=== PATIENT | male | born 1960 | race Caucasian/White ===

== ENCOUNTER 2022-11-26 05:01 | Emergency (ER) | payer OTHER, SELFPAY ==
[2022-11-26] VITALS (17 sets, daily range): BP systolic 153–189; BP diastolic 79–103; PULSE 70–106; RESP 15–24; TEMP 36.6; O2SAT 92–96; BMI 23.1
--- NOTE | 2022-11-26 05:10 | DI.RAD.S_ITS ---
PROCEDURE: XR CHEST 1V INDICATIONS: chest pain TECHNIQUE: One view of the chest was acquired. COMPARISON: None. FINDINGS: Surgical changes and devices: None. Lungs and pleura: Lungs are clear. No pleural effusions or pneumothorax. Mediastinum: Mediastinal contours appear normal. Heart size is normal. Bones and chest wall: No suspicious bony lesions. Overlying soft tissues appear unremarkable. IMPRESSION: No acute cardiopulmonary findings Approved by: Asad Pérez M.D. on 11/26/2022 at 7:09
--- NOTE | 2022-11-26 05:12 | ED_ITS ---
HPI - Chest Pain <Boris Allen - Last Filed: 11/26/22 17:55> General Chief Complaint: Chest Pain Stated Complaint: SOB- fever/chills. Time Seen by Provider: 11/26/22 05:09 History of Present Illness HPI narrative: 61M nonsmoker with history of asthma presents by EMS with his in the chief complaint of shortness of breath, wheezing, subjective fever and chills as well as anterior chest pain and generalized abdominal pain. He has been having increasing shortness of breath with exertion for what sounds like the past few weeks. Prior to today and yesterday he has not had chest pain nor other exertional symptoms such as lightheadedness, nausea, vomiting or unexplained diaphoresis. He had been having these symptoms and they were hesitant to fly he re from where they live in [place] but elected to nonetheless, he started feeling poorly midway on the flight and upon landing was taken to [facility] in [place] where he had what sounds like an extensive workup (records are being requested). He was discharged home with reassuring lab work, report of abnormal EKG with recommendation to get a stress test, as well as budesonide and prescription for doxycycline. He then drove to [facility] with his and over the course of the day continued to feel poorly using his inhaler every couple hours and finally this evening called EMS. He was feeling short of breath and though not hypoxemic EMS put him on 2 L by nasal cannula. Paco myers responded and gave him a DuoNeb and route. He complains of anterior chest pressure and squeezing without radiation and trouble breathing. He is clearly very uncomfortable and also complaining of some generalized abdominal pain. He denies obvious provocation, palliation or radiation was abdominal discomfort he is had no nausea or vomiting and denies any change in diet. He has been passing gas without difficulty and had a bowel movement earlier today. He denies urinary complaints such as dysuria, frequency or urgency. His last hospitalization for admission was well over 1 year ago We have contacted outside facility who will be sending records, but they do mention that he left AMA Related Data Previous Rx's Medication Instructions Recorded albuterol sulfate 90 mcg/actuation 2 puff inhalation Q6H PRN 11/26/22 aerosol inhaler shortness of breath or wheezing #8.5 grams budesonide-formoterol HFA 160 2 puff inhalation BID #10.2 grams 11/26/22 mcg-4.5 mcg/actuation aerosol inhaler (Symbicort) ipratropium 0.5 mg-albuterol 3 mg 3 ml inhalation Q4-6H PRN 11/26/22 (2.5 mg base)/3 mL nebulization shortness of breath or wheezing soln #90 mL oxycodone-acetaminophen 5 mg-325 1 tab PO Q6H PRN pain, cough #20 11/26/22 mg tablet tabs prednisone 20 mg tablet 40 mg PO DAILY #10 tabs 11/26/22 Allergies Allergy/AdvReac Type Severity Reaction Status Date / Time No Known Drug Allergies Allergy Verified 11/26/22 05:10 Review of Systems <Boris Allen DO - Last Filed: 11/26/22 17:55> Review of Systems Narrative: GENERAL: See HPI HEENT: Denies sinus pain, ear pain, sore throat, difficulty swallowing, dizziness. RESPIRATORY: See HPI CARDIOVASCULAR: See HPI GASTROINTESTINAL: See HPI : Denies dysuria, frequency, incontinence, hematuria, urinary retention. MUSCULOSKELETAL: denies weakness, joint pain, or bony pain SKIN: Denies rash, skin lesions, or other NEUROLOGIC: Denies weakness, headache, numbness, change in speech, confusion, seizures, incoordination. PSYCHIATRIC: No concerning psychosocial issues. 12 point review of systems is negative except for those stated above Exam <Boris Allen DO - Last Filed: 11/26/22 17:55> Narrative Exam Narrative: GENERAL: [61] year old patient appears stated age. Well-developed patient, in obvious distress, uncomfortable, scooting around on the car rubbing his chest and abdomen HEAD: Atraumatic. Normocephalic. EYES: Pupils equal round and reactive. Extraocular motions intact. No scleral icterus. No injection or drainage. ENT: Nose without bleeding, purulent drainage. Throat without erythema, tonsillar hypertrophy or exudate. Airway patent. NECK: Trachea midline. Non tender CARDIOVASCULAR: Regular rate and rhythm without murmurs, gallops, or rubs. RESPIRATORY: Diminished throughout with prolonged expiratory phase and end expiratory wheeze throughout, perhaps faint crackles in bilateral bases GASTROINTESTINAL: Abdomen soft, non-tender, nondistended. EXTREMITIES: No edema or joint tenderness. BACK: Nontender without deformity or crepitance. No flank tenderness. NEURO: AOx3. SKIN: No rash or erythema of visible areas Initial Vital Signs Initial Vital Signs: Vital Signs Pulse Rate 83 11/26/22 05:07 Pulse Oximetry 95 11/26/22 05:07 <Abi Khalil MD - Last Filed: 11/26/22 18:55> Initial Vital Signs Initial Vital Signs: Vital Signs Pulse Rate 83 11/26/22 05:07 Pulse Oximetry 95 11/26/22 05:07 Course <Boris Allen DO - Last Filed: 11/26/22 17:55> Orders Ordered: Discontinued Medications Albuterol/Ipratropium (Albuterol/Ipratropium 3 Ml Ampul) 3 ml INH NOW ONE Stop: 11/26/22 09:46 Last Admin: 11/26/22 09:54 Dose: 3 ml Documented By: ILYA Aspirin (Aspirin 81 Mg Chew Tab) 324 mg PO NOW ONE Stop: 11/26/22 05:10 Last Admin: 11/26/22 05:23 Dose: 324 mg Documented By: DAVID Sodium Chloride (Normal Saline 0.9%) 1,000 mls @ 1,000 mls/hr IV BOLUS ONE Stop: 11/26/22 06:08 Last Infusion: 11/26/22 06:41 Dose: 0 mls/hr Documented By: Admin: 11/26/22 05:23 Dose: 1,000 mls/hr Documented By: DAVID Ketorolac Tromethamine (Ketorolac 30 Mg/Ml Vial) 15 mg IV NOW ONE Stop: 11/26/22 09:46 Last Admin: 11/26/22 10:02 Dose: 15 mg Documented By: TAJ Methylprednisolone (Methylprednisolone 125 Mg/2 Ml Vial) 125 mg IV NOW ONE Stop: 11/26/22 06:47 Last Admin: 11/26/22 07:02 Dose: 125 mg Documented By: SHOLA Oxycodone/Acetaminophen (Oxycodone/Acetaminophen 5/325 Tablet) 1 tab PO NOW ONE Stop: 11/26/22 10:13 Last Admin: 11/26/22 10:22 Dose: 1 tab Documented By: TAJ(2) Pantoprazole Sodium (Pantoprazole 40 Mg Vial) 40 mg IV NOW ONE Stop: 11/26/22 06:53 Last Admin: 11/26/22 07:02 Dose: 40 mg Documented By: SHOLA Simethicone (Simethicone 80 Mg Tablet) 80 mg PO NOW ONE Stop: 11/26/22 09:47 Last Admin: 11/26/22 10:46 Dose: 80 mg Documented By: VANESSA Vital Signs Vital signs: Vital Signs - 8 hr 11/26/22 09:57 11/26/22 10:00 11/26/22 10:30 Pulse Rate 78 77 75 Respiratory Rate 20 15 23 Blood Pressure Pulse Oximetry 93 93 94 11/26/22 10:46 11/26/22 10:46 Pulse Rate 81 Respiratory Rate Blood Pressure 153/79 H Pulse Oximetry 93 <Abi Khalil MD - Last Filed: 11/26/22 18:55> Orders Ordered: Discontinued Medications Albuterol/Ipratropium (Albuterol/Ipratropium 3 Ml Ampul) 3 ml INH NOW ONE Stop: 11/26/22 09:46 Last Admin: 11/26/22 09:54 Dose: 3 ml Documented By: ILYA Aspirin (Aspirin 81 Mg Chew Tab) 324 mg PO NOW ONE Stop: 11/26/22 05:10 Last Admin: 11/26/22 05:23 Dose: 324 mg Documented By: DAVID Sodium Chloride (Normal Saline 0.9%) 1,000 mls @ 1,000 mls/hr IV BOLUS ONE Stop: 11/26/22 06:08 Last Infusion: 11/26/22 06:41 Dose: 0 mls/hr Documented By: Admin: 11/26/22 05:23 Dose: 1,000 mls/hr Documented By: DAVID Ketorolac Tromethamine (Ketorolac 30 Mg/Ml Vial) 15 mg IV NOW ONE Stop: 11/26/22 09:46 Last Admin: 11/26/22 10:02 Dose: 15 mg Documented By: TAJ Methylprednisolone (Methylprednisolone 125 Mg/2 Ml Vial) 125 mg IV NOW ONE Stop: 11/26/22 06:47 Last Admin: 11/26/22 07:02 Dose: 125 mg Documented By: SHOLA Oxycodone/Acetaminophen (Oxycodone/Acetaminophen 5/325 Tablet) 1 tab PO NOW ONE Stop: 11/26/22 10:13 Last Admin: 11/26/22 10:22 Dose: 1 tab Documented By: TAJ(2) Pantoprazole Sodium (Pantoprazole 40 Mg Vial) 40 mg IV NOW ONE Stop: 11/26/22 06:53 Last Admin: 11/26/22 07:02 Dose: 40 mg Documented By: SHOLA Simethicone (Simethicone 80 Mg Tablet) 80 mg PO NOW ONE Stop: 11/26/22 09:47 Last Admin: 11/26/22 10:46 Dose: 80 mg Documented By: VANESSA Vital Signs Vital signs: Vital Signs - 8 hr 11/26/22 09:57 11/26/22 10:00 11/26/22 10:30 Pulse Rate 78 77 75 Respiratory Rate 20 15 23 Blood Pressure Pulse Oximetry 93 93 94 11/26/22 10:46 11/26/22 10:46 Pulse Rate 81 Respiratory Rate Blood Pressure 153/79 H Pulse Oximetry 93 MDM - Chest Pain <Boris Allen DO - Last Filed: 11/26/22 17:55> Lab Data Result diagrams: 11/26/22 05:20 11/26/22 05:20 Labs: Lab Results 11/26/22 11/26/22 11/26/22 Range/Units 05:20 05:20 05:20 WBC 13.1 H (4.5-11.0) X10^3/uL RBC 5.04 (4.5-5.9) X10^6/uL Hgb 14.6 (13.5-17.5) g/dL Hct 43.4 (41-53) % MCV 86.1 (80-100) fL MCH 29.1 (26-34) PG MCHC 33.8 (30-36) % RDW 14.0 (11.6-14.8) % Plt Count 283 (150-400) X10^3/uL Neut % (Auto) 76.3 H (50-75) % Lymph % (Auto) 11.3 L (25-40) % [place] % (Auto) 7.3 (3-14) % Eos % (Auto) 4.7 H (2-4) % Baso % (Auto) 0.4 (0-2) % Neut # (Auto) 18963 H (7831-6706) /uL Lymph # (Auto) 1500 (7315-9473) /uL [place] # (Auto) 1000 H (0-900) /uL Eos # (Auto) 600 H (0-450) /uL Baso # (Auto) 100 (0-100) /uL ESR 20 H (0-15) MM/HR PT 12.3 (10.1-12.7) SECONDS INR 1.1 (0.9-1.3) APTT 31 (26-36) SECONDS Sodium (137-145) mmol/L Potassium (3.4-5.1) mmol/L Chloride (98-107) mmol/L Carbon Dioxide (22-32) mmol/L BUN (9-20) mg/dL Creatinine (0.66-1.25) mg/dL Estimated GFR (>60) mL/min BUN/Creatinine Ratio (6-22) Glucose (80-110) mg/dL Lactate (0.7-2.1) mmol/L Calcium (8.4-10.2) mg/dL Magnesium (1.6-2.3) mg/dL Total Bilirubin (0.2-1.3) mg/dL AST (17-59) IU/L ALT (<50) IU/L Alkaline Phosphatase (38-126) U/L Total Creatine Kinase (55-170) U/L CK-MB (CK-2) (<2.37) ng/mL CK-MB (CK-2) Rel Index (1.5-5.0) % Troponin I (0.01-0.034) ng/mL NT-Pro-B Natriuret Pep (<125) pg/mL Total Protein (6.3-8.2) g/dL Albumin (3.5-5.0) g/dL Globulin (1.7-4.1) g/dL Albumin/Globulin Ratio (1.0-2.8) Lipase (23-300) U/L Procalcitonin 0.06 (<0.5) ng/mL Urine Color Urine Appearance Urine pH (4.5-8.0) Ur Specific [place] (1.000-1.035) Urine Protein (Negative) Urine Glucose (UA) (Negative) g/dL Urine Ketones (NEGATIVE) Urine Occult Blood (Negative) Urine Nitrate (Negative) Urine Bilirubin (NEGATIVE) Urine Urobilinogen (0.2) E.U./dL Ur Leukocyte Esterase (NEGATIVE) Urine RBC (0-5/HPF) Urine WBC (0-5/HPF) Urine Bacteria (None) Ur Culture Indicated? SARS-CoV-2 (PCR) (Negative) Influenza A (RT-PCR) (NEGATIVE) Influenza B (RT-PCR) (NEGATIVE) RSV (PCR) (Negative) 11/26/22 11/26/22 11/26/22 Range/Units 05:20 05:20 05:30 WBC (4.5-11.0) X10^3/uL RBC (4.5-5.9) X10^6/uL Hgb (13.5-17.5) g/dL Hct (41-53) % MCV (80-100) fL MCH (26-34) PG MCHC (30-36) % RDW (11.6-14.8) % Plt Count (150-400) X10^3/uL Neut % (Auto) (50-75) % Lymph % (Auto) (25-40) % [place] % (Auto) (3-14) % Eos % (Auto) (2-4) % Baso % (Auto) (0-2) % Neut # (Auto) (5355-1451) /uL Lymph # (Auto) (0369-1802) /uL [place] # (Auto) (0-900) /uL Eos # (Auto) (0-450) /uL Baso # (Auto) (0-100) /uL ESR (0-15) MM/HR PT (10.1-12.7) SECONDS INR (0.9-1.3) APTT (26-36) SECONDS Sodium 136 L (137-145) mmol/L Potassium 3.7 (3.4-5.1) mmol/L Chloride 100 (98-107) mmol/L Carbon Dioxide 25 (22-32) mmol/L BUN 10 (9-20) mg/dL Creatinine 0.71 (0.66-1.25) mg/dL Estimated GFR > 60 (>60) mL/min BUN/Creatinine Ratio 14.1 (6-22) Glucose 107 (80-110) mg/dL Lactate 1.5 (0.7-2.1) mmol/L Calcium 8.9 (8.4-10.2) mg/dL Magnesium 2.0 (1.6-2.3) mg/dL Total Bilirubin 0.6 (0.2-1.3) mg/dL AST 32 (17-59) IU/L ALT 27 (<50) IU/L Alkaline Phosphatase 84 (38-126) U/L Total Creatine Kinase 175 H (55-170) U/L CK-MB (CK-2) 1.83 (<2.37) ng/mL CK-MB (CK-2) Rel Index 1.0 L (1.5-5.0) % Troponin I < 0.012 (0.01-0.034) ng/mL NT-Pro-B Natriuret Pep 47 (<125) pg/mL Total Protein 8.3 H (6.3-8.2) g/dL Albumin 4.7 (3.5-5.0) g/dL Globulin 3.6 (1.7-4.1) g/dL Albumin/Globulin Ratio 1.3 (1.0-2.8) Lipase 63 (23-300) U/L Procalcitonin (<0.5) ng/mL Urine Color Urine Appearance Urine pH (4.5-8.0) Ur Specific [place] (1.000-1.035) Urine Protein (Negative) Urine Glucose (UA) (Negative) g/dL Urine Ketones (NEGATIVE) Urine Occult Blood (Negative) Urine Nitrate (Negative) Urine Bilirubin (NEGATIVE) Urine Urobilinogen (0.2) E.U./dL Ur Leukocyte Esterase (NEGATIVE) Urine RBC (0-5/HPF) Urine WBC (0-5/HPF) Urine Bacteria (None) Ur Culture Indicated? SARS-CoV-2 (PCR) Negative (Negative) Influenza A (RT-PCR) Flu a negative (NEGATIVE) Influenza B (RT-PCR) Flu b negative (NEGATIVE) RSV (PCR) Negative (Negative) 11/26/22 11/26/22 Range/Units 07:30 08:10 WBC (4.5-11.0) X10^3/uL RBC (4.5-5.9) X10^6/uL Hgb (13.5-17.5) g/dL Hct (41-53) % MCV (80-100) fL MCH (26-34) PG MCHC (30-36) % RDW (11.6-14.8) % Plt Count (150-400) X10^3/uL Neut % (Auto) (50-75) % Lymph % (Auto) (25-40) % [place] % (Auto) (3-14) % Eos % (Auto) (2-4) % Baso % (Auto) (0-2) % Neut # (Auto) (8768-4358) /uL Lymph # (Auto) (1982-7657) /uL [place] # (Auto) (0-900) /uL Eos # (Auto) (0-450) /uL Baso # (Auto) (0-100) /uL ESR (0-15) MM/HR PT (10.1-12.7) SECONDS INR (0.9-1.3) APTT (26-36) SECONDS Sodium (137-145) mmol/L Potassium (3.4-5.1) mmol/L Chloride (98-107) mmol/L Carbon Dioxide (22-32) mmol/L BUN (9-20) mg/dL Creatinine (0.66-1.25) mg/dL Estimated GFR (>60) mL/min BUN/Creatinine Ratio (6-22) Glucose (80-110) mg/dL Lactate (0.7-2.1) mmol/L Calcium (8.4-10.2) mg/dL Magnesium (1.6-2.3) mg/dL Total Bilirubin (0.2-1.3) mg/dL AST (17-59) IU/L ALT (<50) IU/L Alkaline Phosphatase (38-126) U/L Total Creatine Kinase (55-170) U/L CK-MB (CK-2) (<2.37) ng/mL CK-MB (CK-2) Rel Index (1.5-5.0) % Troponin I < 0.012 (0.01-0.034) ng/mL NT-Pro-B Natriuret Pep (<125) pg/mL Total Protein (6.3-8.2) g/dL Albumin (3.5-5.0) g/dL Globulin (1.7-4.1) g/dL Albumin/Globulin Ratio (1.0-2.8) Lipase (23-300) U/L Procalcitonin (<0.5) ng/mL Urine Color Yellow Urine Appearance Clear Urine pH 7.0 (4.5-8.0) Ur Specific [place] 1.010 (1.000-1.035) Urine Protein Negative (Negative) Urine Glucose (UA) Negative (Negative) g/dL Urine Ketones 1+ H (NEGATIVE) Urine Occult Blood Negative (Negative) Urine Nitrate Negative (Negative) Urine Bilirubin Negative (NEGATIVE) Urine Urobilinogen 0.2 (0.2) E.U./dL Ur Leukocyte Esterase Negative (NEGATIVE) Urine RBC 0-1/hpf (0-5/HPF) Urine WBC None seen (0-5/HPF) Urine Bacteria None seen (None) Ur Culture Indicated? Cult not indicated SARS-CoV-2 (PCR) (Negative) Influenza A (RT-PCR) (NEGATIVE) Influenza B (RT-PCR) (NEGATIVE) RSV (PCR) (Negative) Urine Dip Bedside Urine Glucose Negative Bedside Urine Bilirubin - Negative Bedside Urine Ketone + 15 Urine Specific [place] 1.005 Bedside Urine Occult Blood - Negative Bedside Urine pH 7.0 Bedside Urine Protein - Negative Bedside Urine Urobilinogen - Negative Bedside Urine Nitrite - Negative Bedside Urine Leukocytes - Negative Esterase ECG Data Interpretation: [0513] EKG is normal sinus rhythm rate [ 77] and free of any signs of ischemia or ectopy. No ST segmental elevation or depression. No T wave inversions <Abi Khalil MD - Last Filed: 11/26/22 18:55> Lab Data Labs: Lab Results 11/26/22 11/26/22 11/26/22 Range/Units 05:20 05:20 05:20 WBC 13.1 H (4.5-11.0) X10^3/uL RBC 5.04 (4.5-5.9) X10^6/uL Hgb 14.6 (13.5-17.5) g/dL Hct 43.4 (41-53) % MCV 86.1 (80-100) fL MCH 29.1 (26-34) PG MCHC 33.8 (30-36) % RDW 14.0 (11.6-14.8) % Plt Count 283 (150-400) X10^3/uL Neut % (Auto) 76.3 H (50-75) % Lymph % (Auto) 11.3 L (25-40) % [place] % (Auto) 7.3 (3-14) % Eos % (Auto) 4.7 H (2-4) % Baso % (Auto) 0.4 (0-2) % Neut # (Auto) 92368 H (0623-5028) /uL Lymph # (Auto) 1500 (9156-4327) /uL [place] # (Auto) 1000 H (0-900) /uL Eos # (Auto) 600 H (0-450) /uL Baso # (Auto) 100 (0-100) /uL ESR 20 H (0-15) MM/HR PT 12.3 (10.1-12.7) SECONDS INR 1.1 (0.9-1.3) APTT 31 (26-36) SECONDS Sodium (137-145) mmol/L Potassium (3.4-5.1) mmol/L Chloride (98-107) mmol/L Carbon Dioxide (22-32) mmol/L BUN (9-20) mg/dL Creatinine (0.66-1.25) mg/dL Estimated GFR (>60) mL/min BUN/Creatinine Ratio (6-22) Glucose (80-110) mg/dL Lactate (0.7-2.1) mmol/L Calcium (8.4-10.2) mg/dL Magnesium (1.6-2.3) mg/dL Total Bilirubin (0.2-1.3) mg/dL AST (17-59) IU/L ALT (<50) IU/L Alkaline Phosphatase (38-126) U/L Total Creatine Kinase (55-170) U/L CK-MB (CK-2) (<2.37) ng/mL CK-MB (CK-2) Rel Index (1.5-5.0) % Troponin I (0.01-0.034) ng/mL NT-Pro-B Natriuret Pep (<125) pg/mL Total Protein (6.3-8.2) g/dL Albumin (3.5-5.0) g/dL Globulin (1.7-4.1) g/dL Albumin/Globulin Ratio (1.0-2.8) Lipase (23-300) U/L Procalcitonin 0.06 (<0.5) ng/mL Urine Color Urine Appearance Urine pH (4.5-8.0) Ur Specific [place] (1.000-1.035) Urine Protein (Negative) Urine Glucose (UA) (Negative) g/dL Urine Ketones (NEGATIVE) Urine Occult Blood (Negative) Urine Nitrate (Negative) Urine Bilirubin (NEGATIVE) Urine Urobilinogen (0.2) E.U./dL Ur Leukocyte Esterase (NEGATIVE) Urine RBC (0-5/HPF) Urine WBC (0-5/HPF) Urine Bacteria (None) Ur Culture Indicated? SARS-CoV-2 (PCR) (Negative) Influenza A (RT-PCR) (NEGATIVE) Influenza B (RT-PCR) (NEGATIVE) RSV (PCR) (Negative) 11/26/22 11/26/22 11/26/22 Range/Units 05:20 05:20 05:30 WBC (4.5-11.0) X10^3/uL RBC (4.5-5.9) X10^6/uL Hgb (13.5-17.5) g/dL Hct (41-53) % MCV (80-100) fL MCH (26-34) PG MCHC (30-36) % RDW (11.6-14.8) % Plt Count (150-400) X10^3/uL Neut % (Auto) (50-75) % Lymph % (Auto) (25-40) % [place] % (Auto) (3-14) % Eos % (Auto) (2-4) % Baso % (Auto) (0-2) % Neut # (Auto) (1913-2918) /uL Lymph # (Auto) (8575-7926) /uL [place] # (Auto) (0-900) /uL Eos # (Auto) (0-450) /uL Baso # (Auto) (0-100) /uL ESR (0-15) MM/HR PT (10.1-12.7) SECONDS INR (0.9-1.3) APTT (26-36) SECONDS Sodium 136 L (137-145) mmol/L Potassium 3.7 (3.4-5.1) mmol/L Chloride 100 (98-107) mmol/L Carbon Dioxide 25 (22-32) mmol/L BUN 10 (9-20) mg/dL Creatinine 0.71 (0.66-1.25) mg/dL Estimated GFR > 60 (>60) mL/min BUN/Creatinine Ratio 14.1 (6-22) Glucose 107 (80-110) mg/dL Lactate 1.5 (0.7-2.1) mmol/L Calcium 8.9 (8.4-10.2) mg/dL Magnesium 2.0 (1.6-2.3) mg/dL Total Bilirubin 0.6 (0.2-1.3) mg/dL AST 32 (17-59) IU/L ALT 27 (<50) IU/L Alkaline Phosphatase 84 (38-126) U/L Total Creatine Kinase 175 H (55-170) U/L CK-MB (CK-2) 1.83 (<2.37) ng/mL CK-MB (CK-2) Rel Index 1.0 L (1.5-5.0) % Troponin I < 0.012 (0.01-0.034) ng/mL NT-Pro-B Natriuret Pep 47 (<125) pg/mL Total Protein 8.3 H (6.3-8.2) g/dL Albumin 4.7 (3.5-5.0) g/dL Globulin 3.6 (1.7-4.1) g/dL Albumin/Globulin Ratio 1.3 (1.0-2.8) Lipase 63 (23-300) U/L Procalcitonin (<0.5) ng/mL Urine Color Urine Appearance Urine pH (4.5-8.0) Ur Specific [place] (1.000-1.035) Urine Protein (Negative) Urine Glucose (UA) (Negative) g/dL Urine Ketones (NEGATIVE) Urine Occult Blood (Negative) Urine Nitrate (Negative) Urine Bilirubin (NEGATIVE) Urine Urobilinogen (0.2) E.U./dL Ur Leukocyte Esterase (NEGATIVE) Urine RBC (0-5/HPF) Urine WBC (0-5/HPF) Urine Bacteria (None) Ur Culture Indicated? SARS-CoV-2 (PCR) Negative (Negative) Influenza A (RT-PCR) Flu a negative (NEGATIVE) Influenza B (RT-PCR) Flu b negative (NEGATIVE) RSV (PCR) Negative (Negative) 11/26/22 11/26/22 Range/Units 07:30 08:10 WBC (4.5-11.0) X10^3/uL RBC (4.5-5.9) X10^6/uL Hgb (13.5-17.5) g/dL Hct (41-53) % MCV (80-100) fL MCH (26-34) PG MCHC (30-36) % RDW (11.6-14.8) % Plt Count (150-400) X10^3/uL Neut % (Auto) (50-75) % Lymph % (Auto) (25-40) % [place] % (Auto) (3-14) % Eos % (Auto) (2-4) % Baso % (Auto) (0-2) % Neut # (Auto) (8253-7368) /uL Lymph # (Auto) (7903-1997) /uL [place] # (Auto) (0-900) /uL Eos # (Auto) (0-450) /uL Baso # (Auto) (0-100) /uL ESR (0-15) MM/HR PT (10.1-12.7) SECONDS INR (0.9-1.3) APTT (26-36) SECONDS Sodium (137-145) mmol/L Potassium (3.4-5.1) mmol/L Chloride (98-107) mmol/L Carbon Dioxide (22-32) mmol/L BUN (9-20) mg/dL Creatinine (0.66-1.25) mg/dL Estimated GFR (>60) mL/min BUN/Creatinine Ratio (6-22) Glucose (80-110) mg/dL Lactate (0.7-2.1) mmol/L Calcium (8.4-10.2) mg/dL Magnesium (1.6-2.3) mg/dL Total Bilirubin (0.2-1.3) mg/dL AST (17-59) IU/L ALT (<50) IU/L Alkaline Phosphatase (38-126) U/L Total Creatine Kinase (55-170) U/L CK-MB (CK-2) (<2.37) ng/mL CK-MB (CK-2) Rel Index (1.5-5.0) % Troponin I < 0.012 (0.01-0.034) ng/mL NT-Pro-B Natriuret Pep (<125) pg/mL Total Protein (6.3-8.2) g/dL Albumin (3.5-5.0) g/dL Globulin (1.7-4.1) g/dL Albumin/Globulin Ratio (1.0-2.8) Lipase (23-300) U/L Procalcitonin (<0.5) ng/mL Urine Color Yellow Urine Appearance Clear Urine pH 7.0 (4.5-8.0) Ur Specific [place] 1.010 (1.000-1.035) Urine Protein Negative (Negative) Urine Glucose (UA) Negative (Negative) g/dL Urine Ketones 1+ H (NEGATIVE) Urine Occult Blood Negative (Negative) Urine Nitrate Negative (Negative) Urine Bilirubin Negative (NEGATIVE) Urine Urobilinogen 0.2 (0.2) E.U./dL Ur Leukocyte Esterase Negative (NEGATIVE) Urine RBC 0-1/hpf (0-5/HPF) Urine WBC None seen (0-5/HPF) Urine Bacteria None seen (None) Ur Culture Indicated? Cult not indicated SARS-CoV-2 (PCR) (Negative) Influenza A (RT-PCR) (NEGATIVE) Influenza B (RT-PCR) (NEGATIVE) RSV (PCR) (Negative) Urine Dip Bedside Urine Glucose Negative Bedside Urine Bilirubin - Negative Bedside Urine Ketone + 15 Urine Specific [place] 1.005 Bedside Urine Occult Blood - Negative Bedside Urine pH 7.0 Bedside Urine Protein - Negative Bedside Urine Urobilinogen - Negative Bedside Urine Nitrite - Negative Bedside Urine Leukocytes - Negative Esterase MDM Narrative Medical decision making narrative: [facility] CC: Shortness of breath wheezing abdominal pain and bloating among a litany of other somatic complaints Complicating co-morbidities: Asthma, minimal access to healthcare since COVID started Corroborating data: Data collected from: patient, Medical records reviewed: [facility] Emergency visit yesterday where patient left Against Medical Advice with no significant abnormalities found but discharged home with inhaled steroids and doxycycline Differential considered: Acute asthma exacerbation, pneumonia, acute coronary syndrome, dissection, PE, intra-abdominal or thoracic neoplasm, pancreatitis, gallbladder disease, musculoskeletal or pleuritic chest pain, abdominal obstruction, ileus Exam: Moderate wheeze through all lung faust, mild abdominal distention ?Lab Test results independently reviewed as above. Pertinent findings: Mildly elevated white blood cell count with minimal left shift.. Chemistries are entirely benign. Initial troponin and repeat at 3:00 a.m. is unremarkable. Urine with no signs of infection. Imaging studies independently reviewed: CT angio chest abdomen pelvis. Unremarkable with no source of malaise identified. Independently reviewed, does not appear to have significant constipation has not explanation. Treatments: Aspirin, fluids, IV steroids, Protonix. Repeat nebulizer, Gas-X, Toradol, Percocet, spacer for MDI along with instructions Reevaluation: 9am care is received from Dr. Vasquez. Labs reviewed, patient is independently examined. Reviewed all findings with patient and his including lack of all life-threatening diagnoses. He is moderately wheezy we discussed asthma exacerbations as well as pleuritic chest pain. Given Toradol and another nebulizer, extensive questions are answered. 1015: Wheezes significantly improved after the DuoNeb. Still having what very much looks like pleuritic chest pain. Slightly improved with Toradol, Percocet added. Diagnosis: Acute asthma exacerbation with pleurisy and moderate functional ileus secondary to pain Disposition: see below, along with detailed discharge instructions that have been reviewed with patient as well as indications for ED re-evaluation and additional outpatient follow up Discharge Plan Departure Patient Disposition: Home Clinical Impression: Pleurisy, Ileus Asthma exacerbation Qualifiers: Asthma severity: moderate Asthma persistence: persistent Qualified Code(s): J45.41 - Moderate persistent asthma with (acute) exacerbation Instructions: DI for Asthma -- Adult, DI for Pleurisy Activity Restrictions/Additional Instructions: Thank you for coming in today It sounds like you have had a rough couple days and traveling has not made that any easier. Your evaluation today is actually quite reassuring. There is no evidence of life-threatening abnormalities such as heart attack, aortic abnormalities, large tumors, masses or any type of obstructing problems in your abdomen. No pneumonia, collapsed lung and your viral studies for flu, respiratory syncytial virus and COVID are all negative. I think that you are having an acute asthma exacerbation, I would not be surprised if you are getting over a viral infection that was causing the prior coughing. You also have pleurisy. I suspect that the bloating that you are experiencing is simply your guts slowing significantly due to the pain that you are in as well as lack of sleep and decreased oral intake. For your asthma, I am going to have you complete a course of prednisone, a steroid. This will also help with the pleuritic chest pain. You can use your DuoNeb inhaler up to 4 times a day and your albuterol rescue inhaler up to 4 times a day with spacer. When you use the spacer it dramatically increases the amount of medicine that is actually delivered to your lungs. There is no evidence of acute bacterial infection or pneumonia. I do not think that you need to fill the prescription for the doxycycline that we you were given yesterday Please continue your Symbicort inhaler twice a day. I will refill this for you as well. For the overall pain I am going to give you a prescription for Percocet. This has narcotic in it and can make your gut slow down even more. Please make sure you have stool softener or use an [id number] laxative to help with that. All prescriptions have been electronically sent to [facility] in [place]. If you find that you are getting worse or develop any new symptoms, please feel free to return to the emergency department for further evaluation. I have given you copies of all of the studies CT scans etc. that were done in the emergency department today. Please take these when you follow-up with your primary care physician once you return to [place]. Prescriptions: New prednisone 20 mg tablet 40 mg PO DAILY Qty: 10 0RF oxycodone-acetaminophen 5-325 mg tablet 1 tab PO Q6H PRN (Reason: pain, cough) Qty: 20 0RF albuterol sulfate 90 mcg/actuation HFA aerosol inhaler 2 puff inhalation Q6H PRN (Reason: shortness of breath or wheezing) Qty: 8.5 1RF ipratropium-albuterol 0.5 mg-3 mg(2.5 mg base)/3 mL solution for nebulization 3 ml inhalation Q4-6H PRN (Reason: shortness of breath or wheezing) Qty: 90 1RF budesonide-formoterol [Symbicort] 160-4.5 mcg/actuation HFA aerosol inhaler 2 puff inhalation BID Qty: 10.2 0RF Stand Alone Forms: Patient Portal/API
[2022-11-26] MEDS: ASPIRIN 81 MG CHEW TAB 324 MG PO (05:23)
[2022-11-26] MEDS: SODIUM CHLORIDE 0.9% 1,000 ML 1000 ML IV (05:23)
[2022-11-26 05:35] LABS: Add Manual Diff / Slide Review NO; Basophils Absolute Auto 100 /uL (0-100); Basophils Percent Auto 0.4 % (0-2); Eosinophils Absolute Auto 600 /uL (0-450); Eosinophils Percent Auto 4.7 % (2-4); Hematocrit 43.4 % (41-53); Hemoglobin 14.6 g/dL (13.5-17.5); Lymphocytes Absolute Auto 1500 /uL (1100-4500); Lymphocytes Percent Auto 11.3 % (25-40); Mean Corpuscular HGB Conc 33.8 % (30-36); Mean Corpuscular Hemoglobin 29.1 PG (26-34); Mean Corpuscular Volume 86.1 fL (80-100); Monocytes Absolute Auto 1000 /uL (0-900); Monocytes Percent Auto 7.3 % (3-14); Neutrophils Absolute Auto 10000 /uL (1500-7000); Neutrophils Percent Auto 76.3 % (50-75); Platelet Count 283 X10^3/uL (150-400); Red Blood Cell Count 5.04 X10^6/uL (4.5-5.9); White Blood Cell Count 13.1 X10^3/uL (4.5-11.0)
[2022-11-26 05:41] LABS: INR 1.1 (0.9-1.3); Prothrombin Time 12.3 SECONDS (10.1-12.7)
[2022-11-26 05:43] LABS: PTT Partial Thromboplastin Tim 31 SECONDS (26-36)
[2022-11-26 05:45] LABS: Alanine Aminotransferase 27 IU/L (<50); Albumin 4.7 g/dL (3.5-5.0); Albumin Globulin Ratio 1.3 (1.0-2.8); Alkaline Phosphatase 84 U/L (38-126); Aspartate Aminotransferase 32 IU/L (17-59); BUN Creatinine Ratio 14.1 (6-22); Bilirubin Total 0.6 mg/dL (0.2-1.3); Blood Urea Nitrogen 10 mg/dL (9-20); Calcium 8.9 mg/dL (8.4-10.2); Carbon Dioxide 25 mmol/L (22-32); Chloride 100 mmol/L (98-107); Creatine Kinase 175 U/L (55-170); Estimated Glomerular Filt Rate > 60 mL/min (>60); Globulin 3.6 g/dL (1.7-4.1); Glucose 107 mg/dL (80-110); HEMOLYSIS < 15 (0-50); Lipase 63 U/L (23-300); Potassium 3.7 mmol/L (3.4-5.1); Sodium 136 mmol/L (137-145); Total Protein 8.3 g/dL (6.3-8.2)
[2022-11-26 05:47] LABS: Lactate (Lactic Acid) 1.5 mmol/L (0.7-2.1)
--- NOTE | 2022-11-26 05:53 | DI.CT.S_ITS ---
PROCEDURE: CT ANGIO CHEST ABDOMEN PELVIS INDICATIONS: chest/back/abd pain, tearing, HTN hx, SOB TECHNIQUE: Precontrast 5 mm thick sections acquired from the lung apices to the iliac crests. After the administration of intravenous contrast, 2.5 mm thick sections again acquired from the lung apices to the iliac crests. Maximum intensity projection (MIP) oblique sagittal and coronal reformats were then acquired. For radiation dose reduction, the following was used: automated exposure control. COMPARISON: None. FINDINGS: Chest: Cardiovascular: Heart size is normal. No evidence of pulmonary embolism, aortic aneurysm or dissection. Lungs and pleural spaces: The lung faust are clear without nodule, infiltrate or interstitial prominence. Pleural spaces show no effusion or pneumothorax. Lymph nodes: No mediastinal, hilar or axillary adenopathy. Mediastinum: Unremarkable. No hiatal hernia. Thyroid within normal limits. Chest Wall and Bones: Unremarkable. No acute fracture. Abdomen and Pelvis: Liver: Normal in size and attenuation. No contour deformity present. Several hepatic hypodensities consistent with cysts Biliary system: No calcified cholelithiasis or pericholecystic inflammation. No intra or extrahepatic bile duct dilatation. Pancreas: Unremarkable without mass or inflammation evident. Spleen: Normal in size and density. Adrenals: Normal morphology and density. Reproductive system: Unremarkable as visualized. Urinary system: Normal renal size and attenuation. No renal calculi, hydronephrosis, or solid mass present. Urinary bladder unremarkable. Gastrointestinal system: The bowel is unremarkable with no evidence of bowel obstruction or inflammation. The stomach appears unremarkable. Appendix: No findings to suggest acute appendicitis. Lymph nodes: No mesenteric or retroperitoneal adenopathy. Peritoneal spaces: No free air. No free fluid. Vasculature: The IVC, aorta and iliac vasculature are unremarkable. 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 Musculoskeletal: Normal bone mineralization. No acute fractures. IMPRESSION: 1. Unremarkable CT angiogram of the chest abdomen and pelvis. No evidence of aortic dissection or aneurysm Note: Final report is concordant with preliminary interpretation by [email or web address] Approved by: Asad Pérez M.D. on 11/26/2022 at 7:20
[2022-11-26 05:57] LABS: NT-proBNP (BNP-Adult 18+) 47 pg/mL (<125); Troponin I < 0.012 ng/mL (0.01-0.034)
[2022-11-26 06:01] LABS: Creatine Kinase MB 1.83 ng/mL (<2.37)
[2022-11-26 06:02] LABS: Erythrocyte Sedimentation Rate 20 MM/HR (0-15)
[2022-11-26 06:12] LABS: Procalcitonin 0.06 ng/mL (<0.5)
[2022-11-26 07:01] LABS: Influenza A - CEPHEID Flu A NEGATIVE (NEGATIVE); Influenza B - CEPHEID Flu B NEGATIVE (NEGATIVE); Respiratory Syncytial Virus Negative (Negative)
[2022-11-26] MEDS: PANTOPRAZOLE 40 MG VIAL IV (07:02)
[2022-11-26] MEDS: methylPREDNISolone 125 MG/2 ML VIAL IV (07:02)
[2022-11-26 07:09] LABS: COVID-19 CEPHEID 4-PLEX PCR Negative (Negative)
[2022-11-26 08:53] LABS: Troponin I < 0.012 ng/mL (0.01-0.034)
[2022-11-26 08:56] LABS: Appearance Urine UA CLEAR; Bilirubin Urine UA NEGATIVE (NEGATIVE); Color Urine UA YELLOW; Glucose Urine UA NEGATIVE (Negative); Ketones Urine UA 1+ (NEGATIVE); Leukocyte Esterase Urine UA NEGATIVE (NEGATIVE); Nitrite Urine UA NEGATIVE (Negative); Occult Blood Urine UA NEGATIVE (Negative); Protein Urine UA NEGATIVE (Negative); Urobilinogen Urine UA 0.2 E.U./dL (0.2)
[2022-11-26 09:04] LABS: Bacteria Urine None Seen; Culture Indicated Urine Cult Not Indicated; RBC Urine 0-1/HPF (0-5/HPF); WBC Urine None Seen (0-5/HPF)
--- NOTE | 2022-11-26 09:18 | PC.NURSE ---
This RN had a lengthy conversation with pt and re: their frustration with recent symptoms and health concerns. They are traveling from out of town. Pt felt unwell prior to leaving on this trip. Pt was seen at another ER yesterday. states traveling has exacerbated the pts symptoms. Pt has asthma, states he has a rescue inhaler and nebulizer. Pt c/o back pain and CP 2/10. Pt states he wakes up in middle of night with SOB and wheezing. States he has abd bloating and burping. Pt has not been to a primary care in for quite awhile, we discussed the importance of re-establishing a relationship with a primary care provider in his area. ED physician advised of conversation w/ pt.
[2022-11-26] MEDS: ALBUTEROL/IPRATROPIUM 3 ML AMPUL INH (09:54)
--- NOTE | 2022-11-26 10:01 | RT ---
pt vivian flowers well, on room air and no distress noted
[2022-11-26] MEDS: KETOROLAC 30 MG/ML VIAL 15 MG IV (10:02)
[2022-11-26] MEDS: OXYCODONE/ACETAMINOPHEN 5/325 TABLET 1 TAB PO (10:22)
[2022-11-26] MEDS: SIMETHICONE 80 MG TABLET PO (10:46)
== END 2022-11-26 10:57 | disposition home or self-care (01) ==
PROVIDERS: Emergency Medicine; Emergency Provider Emergency Medicine
DX: J45.41 Moderate persistent asthma with (acute) exacerbation (principal); R07.9 Chest pain, unspecified; R09.1 Pleurisy; R50.9 Fever, unspecified; K56.7 Ileus, unspecified; Z20.822 Contact with and (suspected) exposure to COVID-19
CPT/HCPCS: 0241U; 36415; 71045; 71275; 74174; 80053; 81001; 81003; 82550; 82553; 83605; 83690; 83735; 83880; 84145; 84484; 85025; 85610; 85651; 85730; 87040; 93005; 93010; 94640; 96361; 96374; 96375; 99284; C9113; J1885; J2930; Q9967